=== PATIENT | female | born 1955 | race Caucasian/White ===

== ENCOUNTER 2016-10-06 20:10 | Emergency (ER) | payer SELFPAY ==
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
--- NOTE | 2016-10-07 00:11 | ED ORDER SUMMARY ---
..... Patient: MADALYN ALANIS OrderSheet [facility] VisitID: [id number] [address] [place] [address] 61y, F Registration Date/Time: 10/06/2016 ORDER SHEET Weight: 97.9 kg (stated) Allergies: No Known Drug Allergy GENERAL ORDERS: Cervical Spine 2 or 3V Urgent (22:47 10/06/2016 Sharyn EDWARD) (Ack 23:00 [facility] [employer]) (23:57 RFay) Chest 2V Urgent (22:49 10/06/2016 Sharyn EDWARD) (Ack 23:00 [facility] [employer]) (23:57 RFay) MEDICATION ORDERS: IV FLUIDS: ORDER SHEET NOTES: [Electronically signed by Leah Lieberman R.N. (00:34 10/07/2016)] [Electronically signed by Kike Santillan MD (20:49 10/09/2016)] [Electronically locked/signed by Leah Lieberman R.N. (00:34 10/07/2016)]
--- NOTE | 2016-10-07 00:11 | ED ORDER SUMMARY ---
..... Patient: MADALYN ALANIS OrderSheet [facility] VisitID: [id number] [address] [place] [address] 61y, F Registration Date/Time: 10/06/2016 ORDER SHEET Weight: 97.9 kg (stated) Allergies: No Known Drug Allergy GENERAL ORDERS: Cervical Spine 2 or 3V Urgent (22:47 10/06/2016 Sharyn EDWARD) (Ack 23:00 [facility] [employer]) (23:57 RFay) Chest 2V Urgent (22:49 10/06/2016 Sharyn EDWARD) (Ack 23:00 [facility] [employer]) (23:57 RFay) MEDICATION ORDERS: IV FLUIDS: ORDER SHEET NOTES: [Electronically signed by Leah Lieberman R.N. (00:34 10/07/2016)] [Electronically signed by Kike Santillan MD (20:49 10/09/2016)] [Electronically locked/signed by Leah Lieberman R.N. (00:34 10/07/2016)]
--- NOTE | 2016-10-09 20:49 | ED MAR SUMMARY ---
..... Medication Administration Record [facility] [address], [place] [id number] Patient: MADALYN ALANIS Visit ID: [id number] 61y, F Weight: 97.9 kg Height/Length: 63 in BMI: 38.2 ALLERGIES: No Known Drug Allergy
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
--- NOTE | 2016-10-09 20:49 | ED MAR SUMMARY ---
..... Medication Administration Record [facility] [address] [place], [place] [id number] Patient: MADALYN ALANIS Visit ID: [id number] 61y, F Weight: 97.9 kg Height/Length: 63 in BMI: 38.2 ALLERGIES: No Known Drug Allergy
--- NOTE | 2016-10-09 20:49 | ED MED RECONCILIATION SUMMARY ---
Patient: MADALYN ALANIS Medication Reconciliation Report [facility] VisitID: [id number] [address] [place] [address] 61y, F Registration Date/Time: 10/06/2016 Weight: 97.9 kg Height/Length: 63 in. BMI: 38.2 ALLERGIES: No Known Drug Allergy The patient's Home Medications are listed below: THE FOLLOWING MEDICATIONS NEED TO BE RECONCILED: Topamax Oral The source(s) of the original Home Medication information: patient The following Medications were given to the patient in the Emergency Department: None. The following Medications were prescribed to the patient: Robaxin 750 mg: Take 2 orally every 6 hours as needed for muscle spasm. Dispense thirty (30). No refills. Substitution is permissible. -- Kike Santillan MD Oxycodone/APAP 5 mg/325 mg: take 1 tablet orally every 4 hours as needed for pain. Dispense twelve (12). No refill. -- Kike Santillan MD
--- NOTE | 2016-10-09 20:49 | ED MED RECONCILIATION SUMMARY ---
Patient: MADALYN ALANIS Medication Reconciliation Report [facility] VisitID: [id number] [address] [place] [address] 61y, F Registration Date/Time: 10/06/2016 Weight: 97.9 kg Height/Length: 63 in. BMI: 38.2 ALLERGIES: No Known Drug Allergy The patient's Home Medications are listed below: THE FOLLOWING MEDICATIONS NEED TO BE RECONCILED: Topamax Oral The source(s) of the original Home Medication information: patient The following Medications were given to the patient in the Emergency Department: None. The following Medications were prescribed to the patient: Robaxin 750 mg: Take 2 orally every 6 hours as needed for muscle spasm. Dispense thirty (30). No refills. Substitution is permissible. -- Kike Santillan MD Oxycodone/APAP 5 mg/325 mg: take 1 tablet orally every 4 hours as needed for pain. Dispense twelve (12). No refill. -- Kike Santillan MD
== END 2016-10-07 00:33 | disposition home or self-care (01) ==
LOC: ED SRH 20:10
DX: S16.1XXA Strain of muscle, fascia and tendon at neck level, initial encounter (principal); S29.012A Strain of muscle and tendon of back wall of thorax, initial encounter; V49.40XA Driver injured in collision with unspecified motor vehicles in traffic accident, initial encounter; Y93.I9 Activity, other involving external motion; Y92.410 Unspecified street and highway as the place of occurrence of the external cause; Y99.9 Unspecified external cause status